=== PATIENT | female | born 1960 | race Caucasian/White ===

== ENCOUNTER 2016-05-10 07:19 | Emergency (ER) | payer OTHER ==
[~2016-05-10 07:19] MED LIST: ASPI-482 PO; ATOR40TA59 PO; CIPR250T PO; ESTR1PAT67 TD; HYDR-2666 PO; HYDR1TAB10 PO; MAGN400C PO; MYCO360T3 PO; OMEP40CA5 PO; SERT50TA PO; TACR1CAP4 PO
[2016-05-10 07:35] VITALS: BP 141/65
--- NOTE | 2016-05-10 07:46 | PHYS DOC ---
Past Medical History Past Medical History: Anxiety, GERD, High Cholesterol, Other Additional Past Medical Histor: polycystic kidney dx Past Surgical History: Hysterectomy, Tubal ligation, Other Additional Past Surgical Histo: nose, left lens lift, renal transplant on right without nephrectomy Additional Information: Nonsmoker Alcohol Use: Rarely Drug Use: None Adult General Chief Complaint Chief Complaint: UPPER EXTREMITY INJURY HPI HPI Patient is a 56 year old female who presents with left ankle pain and swelling after falling down 2 steps this morning at 0620. She states that she was leaving her home to go to work and missed a step. She also complains of pain in the right side of the low back. She denies hitting her head or loss of consciousness. She has not had any numbness or tingling. She does not have any loss of bowel or bladder control or saddle anesthesia. No nausea, vomiting, or abdominal pain. She has been ambulatory on the left leg, however with pain. Her PCP is Dr. Loaiza. Review of Systems Review of Systems Constitutional: Denies fever or chills. [] Eyes: Denies change in visual acuity, redness, or eye pain. [] GI: Denies abdominal pain, nausea, vomiting. [] : Denies dysuria, hematuria or urinary frequency. [] Musculoskeletal: Reports left ankle pain and right low back pain. Integument: Denies rash or skin lesions. Reports left ankle ecchymosis. Neurologic: Denies headache, focal weakness or sensory changes. Denies loss of consciousness, incontinence, or saddle anesthesia. All systems reviewed and negative unless otherwise stated in the HPI. Allergies Allergies Allergies Coded Allergies Type Severity Reaction Last Updated Verified fluconazole Allergy Severe RASH AND ITCHING 03/11/15 Yes peanut Allergy Severe SEVERE SWELLING OF THROAT 03/11/15 Yes Physical Exam Physical Exam Constitutional: Well developed, well nourished, no acute distress, non-toxic appearance. [] HENT: Normocephalic, atraumatic, oropharynx moist. [] Eyes: PERRLA, EOMI, conjunctiva normal, no discharge. [] Neck: Normal range of motion, no tenderness, supple, no stridor. [] Cardiovascular: Heart rate regular rhythm, no murmur. [] Lungs & Thorax: Bilateral breath sounds clear to auscultation without wheezes, rales, or rhonchi. [] Abdomen: Bowel sounds normal, soft, no tenderness, no masses, no pulsatile masses. [] Skin: Warm, dry, no erythema, no rash. Left lateral malleolus ecchymosis and edema. Back: No midline tenderness, no CVA tenderness. Right-sided paraspinal muscle tenderness in the lumbar region. Extremities: Left lateral malleolus tenderness, ROM mildly decreased due to pain , moderate left lateral malleolus edema. 2+ DP and PT pulses. Less than his and capillary refill in the toes distally. Light touch sensation intact distally. There is no tenderness over the base of the fifth metatarsal or the proximal fibula. Neurologic: Alert and oriented X 3, normal motor function, normal sensory function, no focal deficits noted. [] Psychologic: Affect normal, judgement normal, mood normal. [] Current Patient Data Vital Signs Vital Signs Date Time Temp Pulse Resp B/P Pulse Ox O2 Delivery O2 Flow Rate FiO2 05/10/16 07:35 98.6 89 20 95 Room Air 98.6 EKG EKG [] Radiology/Procedures Radiology/Procedures REASON: fall down 2 stairs PROCEDURE: ANKLE LEFT 3V Left ankle, 3 views, 05/10/2016: History: Fall downstairs There are small calcific densities at the tips of the medial and lateral malleolus, probably due to old trauma. No definite acute fracture or dislocation is seen. There is moderate soft tissue swelling over the lateral malleolus. IMPRESSION: 1. Small cortical avulsion fracture fragments at the tips of the medial and lateral malleoli are probably old. 2. No definite acute bony abnormality is detected. Course & Med Decision Making Course & Med Decision Making Pertinent Labs and Imaging studies reviewed. (See chart for details) Patient presents with left ankle pain after fall down the stairs this morning. My exam, she is tenderness over the left lateral malleolus. She is neurovascularly intact without compartment syndrome. X-ray does not show any acute fractures or dislocations. She is given an Ravi wrap prior to discharge. She is instructed to follow-up with orthopedics. Return precautions were discussed. She verbalizes understanding and agrees with plan. Dragon Disclaimer Dragon Disclaimer This electronic medical record was generated, in whole or in part, using a voice recognition dictation system. Departure Departure Impression: Primary Impression: Ankle sprain Disposition: 01 HOME, SELF-CARE Condition: STABLE Referrals: RYLAN PÉREZ MD (PCP) STAN BRITTON MD Patient Instructions: Ankle Sprain, [id number], RICE - Routine Care for Injuries, [id number] Additional Instructions: X-ray does not show any fracture or dislocation. Please wear the provided Ravi wrap for stability and to help decrease swelling. Please follow-up with the orthopedic doctor listed below if your pain continues. Return to the emergency department with any new or concerning symptoms. Scripts Acetaminophen With Codeine (Tylenol With Codeine #3 Tablet)1 Each Tablet1 Tab PO PRN Q6HRS PRN PAIN #15 TAB Prov:CINDI HOWELL 05/10/16 Problem Qualifiers Primary Impression: Ankle sprain Encounter type: initial encounter Involved ligament of ankle: unspecified ligament Laterality: left Qualified Code: S93.402A - Sprain of unspecified ligament of left ankle, initial encounter CINDI HOWELL May 10, 2016 07:46
--- NOTE | 2016-05-10 08:01 | RAD ---
Left ankle, 3 views, 05/10/2016: History: Fall downstairs There are small calcific densities at the tips of the medial and lateral malleolus, probably due to old trauma. No definite acute fracture or dislocation is seen. There is moderate soft tissue swelling over the lateral malleolus. IMPRESSION: 1. Small cortical avulsion fracture fragments at the tips of the medial and lateral malleoli are probably old. 2. No definite acute bony abnormality is detected.
[2016-05-10] MEDS ORDERED: ACET-704 PO (08:15)
== END 2016-05-10 08:26 | disposition home or self-care (01) ==
LOC: ER 07:19
DX: S93.402A Sprain of unspecified ligament of left ankle, initial encounter (principal); M54.5 Low back pain; E78.00 Pure hypercholesterolemia, unspecified; K21.9 Gastro-esophageal reflux disease without esophagitis; Q61.3 Polycystic kidney, unspecified; Z90.710 Acquired absence of both cervix and uterus; Z98.51 Tubal ligation status; Z88.8 Allergy status to other drugs, medicaments and biological substances; Z91.010 Allergy to peanuts; W10.9XXA Fall (on) (from) unspecified stairs and steps, initial encounter; Y93.89 Activity, other specified; Y99.8 Other external cause status; Y92.098 Other place in other non-institutional residence as the place of occurrence of the external cause
CPT/HCPCS: 73610; 99284

== ENCOUNTER → 2016-05-19 | Outpatient (CLI) | payer OTHER ==
[2016-05-10 07:35] VITALS: BP 141/65
[~2016-05-19] MED LIST changes: +ACET-704 PO
--- NOTE | 2016-05-24 08:28 | KCIC ---
PROCEDURE MR of the left ankle HISTORY Left ankle injury. Injury May 10. Diffuse swelling and bruising. COMPARISON None TECHNIQUE Standard noncontrast images are obtained. FINDINGS The peroneal tendons are intact. High-grade tear of anterior talofibular ligament and calcaneofibular ligament, with sprain or partial tearing of posterior talofibular ligament. Anterior tibiofibular ligament is intact. Posterior tibial tendon demonstrates mild tendinosis. Flexor tendons are intact. Partial tearing of the deep fibers of the deltoid ligament. The anterior tibial and extensor tendons are intact. Achilles tendon is intact. No acute plantar fasciitis. Subtalar joints patent. Tarsal sinus intact. Talar dome is intact. Trace fluid in the posterior subtalar and tibiotalar joints. Mild marrow edema or contusions at the medial malleolus, medial talus and sustentacular process of the calcaneus. Minimal marrow edema or contusion at the lateral process of the talus and at the posterior talus. Marrow edema/ contusion at the anterior process of the calcaneus. Mild marrow edema/contusion at the distal inferior cuboid bone. There is medial flexion of the talus. Generalized subcutaneous edema or hemorrhage around the ankle. There is a small complex collection at the anterolateral ankle, anterior to the lateral malleolus , with hyperintense T1 signal characteristics, compatible with a small hematoma. IMPRESSION 1.Lateral ankle ligament tears. 2.Partial tear of the deep fibers of the medial deltoid ligament. 3.Posterior tibial tendinosis. 4.Small scattered areas of marrow edema or contusions. 5.Small soft tissue hematoma and the anterolateral ankle. MTDD
== END | disposition home or self-care (01) ==
LOC: KCIC MRI 13:39
PROVIDERS: ATTEND Nurse Practitioner Gerontology
DX: S99.912D Unspecified injury of left ankle, subsequent encounter (principal)
CPT/HCPCS: 73721

== ENCOUNTER → 2017-03-16 | Outpatient (CLI) | payer OTHER ==
[~2017-03-16] MED LIST changes: -HYDR-2666 PO; +HYDR-2758 PO
== END | disposition home or self-care (01) ==
LOC: LAB 09:23
DX: E03.9 Hypothyroidism, unspecified (principal)
CPT/HCPCS: 36415; 84443

== ENCOUNTER → 2017-03-18 | Outpatient (CLI) | payer OTHER ==
[2017-03-22 14:18] LABS: BK QUANTITATION PCR Negative copies/mL (Negative)
== END | disposition home or self-care (01) ==
LOC: LAB 12:03
PROVIDERS: ATTEND Nurse Practitioner Adult Health
DX: E03.9 Hypothyroidism, unspecified (principal); Z94.0 Kidney transplant status
CPT/HCPCS: 36415; 87799

== ENCOUNTER → 2017-05-03 | Outpatient (CLI) | payer OTHER ==
[2017-05-03 09:06] LABS: ADD MAN DIFF? NO
[2017-05-03 09:10] LABS: BASO # 0.1 x10^3/uL (0.0-0.2); BASO % 0 % (0-3); EOS # 0.2 x10^3/uL (0.0-0.7); EOS % 2 % (0-3); HEMATOCRIT 37.7 % (36.0-47.0); HEMOGLOBIN 12.5 g/dL (12.0-15.5); LYMPH # 2.1 x10^3/uL (1.0-4.8); LYMPH % 17 % (24-48); MEAN CORPUSCULAR HEMOGLOBIN 27 pg (25-35); MEAN CORPUSCULAR HGB CONC 33 g/dL (31-37); MEAN CORPUSCULAR VOLUME 83 fL (79-100); MONO # 1.2 x10^3/uL (0.0-1.1); MONO % 10 % (0-9); NEUT # 8.6 x10^3uL (1.8-7.7); NEUT % 71 % (31-73); PLATELET COUNT 244 x10^3/uL (140-400); RED BLOOD COUNT 4.57 x10^6/uL (3.50-5.40); RED CELL DISTRIBUTION WIDTH 14.8 % (11.5-14.5); WHITE BLOOD COUNT 12.2 x10^3/uL (4.0-11.0)
[2017-05-03 09:33] LABS: BILIRUBIN,URINE NEGATIVE (NEG); CLARITY,URINE CLEAR; COLOR,URINE YELLOW; GLUCOSE,URINE NEGATIVE (NEG); NITRITE,URINE NEGATIVE (NEG); PH,URINE 5.5; PROTEIN,URINE 30 mg/dL (NEG-TRACE); UROBILINOGEN,URINE 0.2 mg/dL (0.2 mg/dL)
[2017-05-03 09:42] LABS: ALBUMIN 3.8 g/dL (3.4-5.0); ALBUMIN/GLOBULIN RATIO 0.9 (1.0-1.7); ALK PHOS 77 U/L (46-116); ALT (SGPT) 17 U/L (14-59); ANION GAP 9 (6-14); AST (SGOT) 12 U/L (15-37); BLOOD UREA NITROGEN 21 mg/dL (7-20); BUN/CREATININE RATIO 18 (6-20); CALCIUM 10.2 mg/dL (8.5-10.1); CARBON DIOXIDE 30 mmol/L (21-32); CHLORIDE 103 mmol/L (98-107); CHOLESTEROL 147 mg/dL (0-200); CREATININE 1.2 mg/dL (0.6-1.0); GAMMA GLUTAMYL TRANSPEPTIDASE 18 U/L (5-55); GLUCOSE 160 mg/dL (70-99); PHOSPHORUS 3.8 mg/dL (2.6-4.7); POTASSIUM 4.6 mmol/L (3.5-5.1); SODIUM 142 mmol/L (136-145); TOTAL BILIRUBIN 0.5 mg/dL (0.2-1.0); TOTAL PROTEIN 8.1 g/dL (6.4-8.2); URIC ACID 4.6 mg/dL (2.6-6.0)
[2017-05-03 09:48] LABS: BACTERIA,URINE MANY /HPF (0-FEW); SQUAMOUS EPITHELIAL CELL,UR MANY /LPF
[2017-05-03 09:49] LABS: RBC,URINE OCC /HPF (0-2)
[2017-05-05 07:48] LABS: PROGRAF LEVEL SEE SEPARATE REPORT
== END | disposition home or self-care (01) ==
LOC: LAB 08:54
DX: Z48.89 Encounter for other specified surgical aftercare (principal); Z94.89 Other transplanted organ and tissue status; Z94.0 Kidney transplant status
CPT/HCPCS: 36415; 80053; 80197; 81001; 82465; 82977; 83735; 84100; 84550; 85025; 87086

== ENCOUNTER → 2017-09-22 | Outpatient (CLI) | payer OTHER ==
[2017-09-22 08:58] LABS: ALBUMIN/GLOBULIN RATIO 1.1 (1.0-1.7); ALK PHOS 75 U/L (46-116); ALT (SGPT) 29 U/L (14-59); ANION GAP 10 (6-14); AST (SGOT) 23 U/L (15-37); BLOOD UREA NITROGEN 32 mg/dL (7-20); BUN/CREATININE RATIO 29 (6-20); CALCIUM 9.5 mg/dL (8.5-10.1); CARBON DIOXIDE 27 mmol/L (21-32); CHLORIDE 105 mmol/L (98-107); CHOLESTEROL 166 mg/dL (0-200); CHOLESTEROL/HDL RATIO 4.2; CREATININE 1.1 mg/dL (0.6-1.0); GFR 50.8; GLUCOSE 68 mg/dL (70-99); HDLC 40 mg/dL (40-60); LDLC 95 mg/dL (0-100); NON-HDL CHOLESTEROL 126 mg/dL (0-129); POTASSIUM 4.6 mmol/L (3.5-5.1); SODIUM 142 mmol/L (136-145); TOTAL BILIRUBIN 0.3 mg/dL (0.2-1.0); TOTAL PROTEIN 7.7 g/dL (6.4-8.2); TRIGLYCERIDES 156 mg/dL (0-150); VLDLC 31 mg/dL (0-40)
[2017-09-22 15:29] LABS: C-PEPTIDE 4.3 ng/mL (1.1-4.4)
== END | disposition home or self-care (01) ==
LOC: LAB 08:24
DX: E11.65 Type 2 diabetes mellitus with hyperglycemia (principal)
CPT/HCPCS: 36415; 80053; 80061; 84681

== ENCOUNTER → 2017-12-12 | Outpatient (CLI) | payer OTHER ==
[2017-09-14 07:00] VITALS: BP 130/70
[~2017-12-12] MED LIST changes: +DOXY100T PO; +GLYB5TAB3 PO; +INSU100I13 SQ
[2017-12-12 09:32] LABS: BASO # 0.1 x10^3/uL (0.0-0.2); BASO % 1 % (0-3); EOS # 0.5 x10^3/uL (0.0-0.7); EOS % 6 % (0-3); HEMATOCRIT 39.7 % (36.0-47.0); HEMOGLOBIN 13.1 g/dL (12.0-15.5); LYMPH # 2.2 x10^3/uL (1.0-4.8); LYMPH % 25 % (24-48); MEAN CORPUSCULAR HEMOGLOBIN 27 pg (25-35); MEAN CORPUSCULAR HGB CONC 33 g/dL (31-37); MEAN CORPUSCULAR VOLUME 83 fL (79-100); MONO # 0.8 x10^3/uL (0.0-1.1); MONO % 9 % (0-9); NEUT # 5.1 x10^3uL (1.8-7.7); NEUT % 59 % (31-73); PLATELET COUNT 229 x10^3/uL (140-400); RED CELL DISTRIBUTION WIDTH 15.7 % (11.5-14.5); WHITE BLOOD COUNT 8.6 x10^3/uL (4.0-11.0)
[2017-12-12 09:39] LABS: BILIRUBIN,URINE NEGATIVE (NEG); CLARITY,URINE CLEAR; COLOR,URINE YELLOW; NITRITE,URINE NEGATIVE (NEG); PH,URINE 6.5; PROTEIN,URINE NEGATIVE (NEG-TRACE); UROBILINOGEN,URINE 0.2 mg/dL (0.2 mg/dL)
[2017-12-12 09:49] LABS: BACTERIA,URINE FEW /HPF (0-FEW); RBC,URINE 0 /HPF (0-2); SQUAMOUS EPITHELIAL CELL,UR FEW /LPF
[2017-12-12 09:58] LABS: ALBUMIN 4.4 g/dL (3.4-5.0); ALBUMIN/GLOBULIN RATIO 1.2 (1.0-1.7); CALCIUM 9.8 mg/dL (8.5-10.1); CREATININE 1.1 mg/dL (0.6-1.0); GFR 50.8; PHOSPHORUS 3.4 mg/dL (2.6-4.7); POTASSIUM 4.2 mmol/L (3.5-5.1); TOTAL BILIRUBIN 0.5 mg/dL (0.2-1.0); TOTAL PROTEIN 8.2 g/dL (6.4-8.2); URIC ACID 4.1 mg/dL (2.6-6.0)
[2017-12-12 10:01] LABS: CHOLESTEROL/HDL RATIO 3.1
== END | disposition home or self-care (01) ==
LOC: LAB 09:04
PROVIDERS: ATTEND Family Medicine
DX: Z48.22 Encounter for aftercare following kidney transplant (principal); I12.0 Hypertensive chronic kidney disease with stage 5 chronic kidney disease or end stage renal disease; N18.6 End stage renal disease; E11.22 Type 2 diabetes mellitus with diabetic chronic kidney disease; E11.65 Type 2 diabetes mellitus with hyperglycemia; E78.5 Hyperlipidemia, unspecified; E78.00 Pure hypercholesterolemia, unspecified; F41.9 Anxiety disorder, unspecified; K21.9 Gastro-esophageal reflux disease without esophagitis; Z88.8 Allergy status to other drugs, medicaments and biological substances; Z79.899 Other long term (current) drug therapy; Z91.018 Allergy to other foods; Z79.82 Long term (current) use of aspirin; Z79.4 Long term (current) use of insulin; Z82.49 Family history of ischemic heart disease and other diseases of the circulatory system; Z94.0 Kidney transplant status; Z90.710 Acquired absence of both cervix and uterus
CPT/HCPCS: 36415; 80053; 80061; 80197; 81001; 82550; 82977; 83036; 83735; 84100; 84550; 85025; 87086

== ENCOUNTER → 2018-06-20 | Outpatient (CLI) | payer OTHER ==
[2017-09-14 07:00] VITALS: BP 130/70
[~2018-06-20] MED LIST changes: -HYDR-2758 PO; +HYDR-2761 PO
--- NOTE | 2018-06-20 10:59 | KCIC ---
EXAM: Maxillofacial bone CT without contrast. HISTORY: Sinusitis. TECHNIQUE: Computed tomographic images of the axial facial bones were obtained without contrast. *One or more of the following individualized dose reduction techniques were utilized for this examination: 1. Automated exposure control. 2. Adjustment of the mA and/or kV according to patient size. 3. Use of iterative reconstruction technique. COMPARISON: 06/21/2014. FINDINGS: There is severe left maxillary sinus mucosal thickening and complete opacification of the left aspect of the sphenoid sinus. There is mild right maxillary and moderate bilateral ethmoid sinus mucosal thickening. There is evidence of left maxillary antrostomy/uncinectomy surgery. The right ostiomeatal unit is patent. There is mild rightward nasal septal deviation. The temporomandibular joints are intact. The visualized portions of the brain and calvarium are unremarkable. The mastoid air cells are clear. The orbits are unremarkable. IMPRESSION: 1. Severe left maxillary mucosal thickening and opacification of the left aspect of the sphenoid sinus. There is evidence of prior left maxillary antrostomy/uncinectomy surgery. 2. Mild right maxillary and moderate bilateral ethmoid sinus because of thickening. 3. Mild nasal septal deviation. Electronically signed by: Lluvia Lee MD (06/20/2018 10:56 AM) [place] [id number]
== END | disposition home or self-care (01) ==
LOC: KCIC CT 09:51
PROVIDERS: ATTEND Family Medicine
DX: J32.2 Chronic ethmoidal sinusitis (principal); J32.0 Chronic maxillary sinusitis; J32.3 Chronic sphenoidal sinusitis; J34.2 Deviated nasal septum; E11.9 Type 2 diabetes mellitus without complications; Z88.8 Allergy status to other drugs, medicaments and biological substances; Z87.891 Personal history of nicotine dependence
CPT/HCPCS: 70486

== ENCOUNTER → 2018-08-02 | Outpatient (CLI) | payer OTHER ==
[2017-09-14 07:00] VITALS: BP 130/70
[2018-08-02 10:20] LABS: BILIRUBIN,URINE NEGATIVE (NEG); CLARITY,URINE CLEAR; COLOR,URINE YELLOW; NITRITE,URINE NEGATIVE (NEG); PH,URINE 6.5; PROTEIN,URINE NEGATIVE (NEG-TRACE); UROBILINOGEN,URINE 0.2 mg/dL (0.2 mg/dL)
[2018-08-02 10:36] LABS: BACTERIA,URINE FEW /HPF (0-FEW); WBC,URINE RARE /HPF (0-4)
[2018-08-02 10:37] LABS: SQUAMOUS EPITHELIAL CELL,UR FEW /LPF
== END | disposition home or self-care (01) ==
LOC: LAB 09:30
PROVIDERS: ATTEND Family Medicine
DX: Z94.89 Other transplanted organ and tissue status (principal)
CPT/HCPCS: 81001

== ENCOUNTER → 2018-08-07 | Outpatient (CLI) | payer OTHER ==
[2017-09-14 07:00] VITALS: BP 130/70
[2018-08-07 09:31] LABS: BASO # 0.1 x10^3/uL (0.0-0.2); BASO % 1 % (0-3); EOS # 0.7 x10^3/uL (0.0-0.7); EOS % 10 % (0-3); LYMPH # 2.2 x10^3/uL (1.0-4.8); LYMPH % 30 % (24-48); MEAN CORPUSCULAR HEMOGLOBIN 28 pg (25-35); MEAN CORPUSCULAR HGB CONC 33 g/dL (31-37); MEAN CORPUSCULAR VOLUME 84 fL (79-100); MONO # 0.5 x10^3/uL (0.0-1.1); MONO % 7 % (0-9); NEUT # 3.7 x10^3uL (1.8-7.7); NEUT % 52 % (31-73); PLATELET COUNT 215 x10^3/uL (140-400); RED BLOOD COUNT 4.64 x10^6/uL (3.50-5.40); RED CELL DISTRIBUTION WIDTH 14.5 % (11.5-14.5); WHITE BLOOD COUNT 7.2 x10^3/uL (4.0-11.0)
[2018-08-07 09:53] LABS: ALBUMIN/GLOBULIN RATIO 1.3 (1.0-1.7); CALCIUM 9.3 mg/dL (8.5-10.1); GFR 56.6; POTASSIUM 4.3 mmol/L (3.5-5.1); TOTAL BILIRUBIN 0.4 mg/dL (0.2-1.0); TOTAL PROTEIN 7.2 g/dL (6.4-8.2)
[2018-08-07 09:58] LABS: CHOLESTEROL/HDL RATIO 2.4
== END | disposition home or self-care (01) ==
LOC: LAB 08:49
PROVIDERS: ATTEND Family Medicine
DX: E11.65 Type 2 diabetes mellitus with hyperglycemia (principal); Z94.89 Other transplanted organ and tissue status
CPT/HCPCS: 36415; 80053; 80061; 80197; 83036; 85025

== ENCOUNTER → 2018-11-29 | Outpatient (CLI) | payer OTHER ==
[2017-09-14 07:00] VITALS: BP 130/70
[2018-11-29 09:41] LABS: ALBUMIN 4.4 g/dL (3.4-5.0); ALBUMIN/GLOBULIN RATIO 1.3 (1.0-1.7); CALCIUM 9.8 mg/dL (8.5-10.1); GFR 56.6; POTASSIUM 4.3 mmol/L (3.5-5.1); TOTAL BILIRUBIN 0.4 mg/dL (0.2-1.0); TOTAL PROTEIN 7.7 g/dL (6.4-8.2)
[2018-11-29 09:42] LABS: CHOLESTEROL/HDL RATIO 2.4
[2018-11-29 09:46] LABS: BASO # 0.1 x10^3/uL (0.0-0.2); BASO % 1 % (0-3); EOS # 0.3 x10^3/uL (0.0-0.7); EOS % 4 % (0-3); HEMATOCRIT 40.5 % (36.0-47.0); HEMOGLOBIN 13.5 g/dL (12.0-15.5); LYMPH % 23 % (24-48); MEAN CORPUSCULAR HEMOGLOBIN 28 pg (25-35); MEAN CORPUSCULAR HGB CONC 33 g/dL (31-37); MEAN CORPUSCULAR VOLUME 85 fL (79-100); MONO # 0.6 x10^3/uL (0.0-1.1); MONO % 7 % (0-9); NEUT # 5.8 x10^3/uL (1.8-7.7); NEUT % 66 % (31-73); PLATELET COUNT 226 x10^3/uL (140-400); RED BLOOD COUNT 4.76 x10^6/uL (3.50-5.40); RED CELL DISTRIBUTION WIDTH 14.1 % (11.5-14.5); WHITE BLOOD COUNT 8.7 x10^3/uL (4.0-11.0)
[2018-11-29 23:07] LABS: HEMOGLOBIN A1C 5.8 % (4.8-5.6)
== END | disposition home or self-care (01) ==
LOC: LAB 09:01
PROVIDERS: ATTEND Neurological Surgery
DX: E11.9 Type 2 diabetes mellitus without complications (principal); E78.49 Other hyperlipidemia; Z94.0 Kidney transplant status; Z94.89 Other transplanted organ and tissue status
CPT/HCPCS: 36415; 80053; 80061; 80197; 83036; 85025

== ENCOUNTER → 2019-03-01 | Outpatient (CLI) | payer OTHER ==
[2017-09-14 07:00] VITALS: BP 130/70
[~2019-03-01] MED LIST changes: +OMEP40CA45 PO; -OMEP40CA5 PO
[2019-03-01 09:14] LABS: BASO # 0.1 x10^3/uL (0.0-0.2); BASO % 1 % (0-3); EOS # 0.4 x10^3/uL (0.0-0.7); EOS % 5 % (0-3); HEMATOCRIT 40.4 % (36.0-47.0); HEMOGLOBIN 13.2 g/dL (12.0-15.5); LYMPH # 2.1 x10^3/uL (1.0-4.8); LYMPH % 25 % (24-48); MEAN CORPUSCULAR HEMOGLOBIN 28 pg (25-35); MEAN CORPUSCULAR HGB CONC 33 g/dL (31-37); MEAN CORPUSCULAR VOLUME 84 fL (79-100); MONO # 0.6 x10^3/uL (0.0-1.1); MONO % 7 % (0-9); NEUT # 5.1 x10^3/uL (1.8-7.7); NEUT % 62 % (31-73); PLATELET COUNT 238 x10^3/uL (140-400); RED BLOOD COUNT 4.81 x10^6/uL (3.50-5.40); WHITE BLOOD COUNT 8.3 x10^3/uL (4.0-11.0)
[2019-03-01 09:38] LABS: ALBUMIN 4.5 g/dL (3.4-5.0); ALBUMIN/GLOBULIN RATIO 1.3 (1.0-1.7); CALCIUM 9.5 mg/dL (8.5-10.1); GFR 56.6; POTASSIUM 4.7 mmol/L (3.5-5.1); TOTAL BILIRUBIN 0.3 mg/dL (0.2-1.0); TOTAL PROTEIN 7.9 g/dL (6.4-8.2)
[2019-03-01 09:43] LABS: CHOLESTEROL/HDL RATIO 2.5
[2019-03-02 01:07] LABS: HEMOGLOBIN A1C 5.9 % (4.8-5.6)
== END | disposition home or self-care (01) ==
LOC: LAB 08:48
PROVIDERS: ATTEND Nurse Practitioner Family
DX: E11.9 Type 2 diabetes mellitus without complications (principal); E78.49 Other hyperlipidemia; Z94.0 Kidney transplant status; Z94.89 Other transplanted organ and tissue status
CPT/HCPCS: 36415; 80053; 80061; 80197; 83036; 85025

== ENCOUNTER → 2019-05-17 | Outpatient (CLI) | payer OTHER ==
[2017-09-14 07:00] VITALS: BP 130/70
[2019-05-17 10:10] LABS: BASO # 0.1 x10^3/uL (0.0-0.2); BASO % 1 % (0-3); EOS # 0.3 x10^3/uL (0.0-0.7); EOS % 5 % (0-3); HEMATOCRIT 40.6 % (36.0-47.0); HEMOGLOBIN 13.6 g/dL (12.0-15.5); LYMPH # 2.1 x10^3/uL (1.0-4.8); LYMPH % 31 % (24-48); MEAN CORPUSCULAR HEMOGLOBIN 28 pg (25-35); MEAN CORPUSCULAR HGB CONC 33 g/dL (31-37); MEAN CORPUSCULAR VOLUME 84 fL (79-100); MONO # 0.5 x10^3/uL (0.0-1.1); MONO % 7 % (0-9); NEUT # 3.8 x10^3/uL (1.8-7.7); NEUT % 56 % (31-73); PLATELET COUNT 219 x10^3/uL (140-400); RED BLOOD COUNT 4.86 x10^6/uL (3.50-5.40); RED CELL DISTRIBUTION WIDTH 14.4 % (11.5-14.5); WHITE BLOOD COUNT 6.7 x10^3/uL (4.0-11.0)
[2019-05-17 10:12] LABS: ALBUMIN 4.1 g/dL (3.4-5.0); ALBUMIN/GLOBULIN RATIO 1.3 (1.0-1.7); CALCIUM 9.7 mg/dL (8.5-10.1); CREATININE 1.1 mg/dL (0.6-1.0); GFR 50.5; POTASSIUM 4.4 mmol/L (3.5-5.1); TOTAL BILIRUBIN 0.5 mg/dL (0.2-1.0); TOTAL PROTEIN 7.3 g/dL (6.4-8.2)
[2019-05-17 17:09] LABS: CREAT RD UR 86.8 mg/dL (Not Estab.); MICRO CREAT RATIO <3 mg/g creat (0-29); MICROALB RD UR <3.0 ug/mL (Not Estab.)
== END | disposition home or self-care (01) ==
LOC: LAB 09:18
PROVIDERS: ATTEND Family Medicine
DX: E78.49 Other hyperlipidemia (principal)
CPT/HCPCS: 36415; 80053; 80061; 80197; 82043; 82570; 83036; 85025